=== PATIENT | female | born 1975 | race African-American/Black ===

== ENCOUNTER 2018-11-27 13:17 | Inpatient (IN) | payer OTHER ==
[2018-11-27 16:24] VITALS: BMI 22.3
--- NOTE | 2018-11-27 18:21 | HP ---
CIWA Score - Admission Criteria [facility] Guidelines: Admission for Medically Managed Detox: Requires at least one of the followin. CIWA greater than 12 2. Seizures within the past 24 hours 3. Delirium tremens within the past 24 hours 4. Hallucinations within the past 24 hours 5. Acute intervention needed for co occurring medical disorder 6. Acute intervention needed for co occurring psychiatric disorder 7. Severe withdrawal that cannot be handled at a lower level of care (continued vomiting, continued diarrhea, abnormal vital signs) requiring intravenous medication and/or fluids 8. Admission [facility] - HPI Chief Complaint: here for rehab Allergies/Adverse Reactions: Allergies Allergy/AdvReac Type Severity Reaction Status Date / Time No Known Allergies Allergy Verified 11/27/18 16:17 History of Present Illness: 43 yo with stage 4 lung cancer- smoker, with opioid use disorder. Is in a MAT- methadone program-120mg. Continues to use- 5 bags [facility] heroin/day. Uses occ marijuana. Would like to stop marijuana use and heroin use. Had upper back surgery to repair vetebrae from metastatic cancer. Pt then had radiation therapy. Now goes to chemotherapy-(Immunotherapy) last treatment Oct 27. Next one due this week- pt to reschedule. PCP- [facility]: THC, Mop, oxy, MTD. - Ebola screening Have you traveled outside of the country in the last 21 days: No Have you had contact with anyone from an Ebola affected area: No - Review of Systems Constitutional: No Symptoms Reported EENT: reports: No Symptoms Reported Respiratory: reports: No Symptoms reported Cardiac: reports: No Symptoms Reported GI: reports: No Symptoms Reported : reports: No Symptoms Reported Musculoskeletal: reports: No Symptoms Reported Integumentary: reports: No Symptoms Reported Neuro: reports: No Symptoms reported Endocrine: reports: No Symptoms Reported Hematology: reports: No Symptoms Reported Psychiatric: reports: No Sypmtoms Reported Other Systems: Reviewed and Negative Patient History - Patient Medical History Hx Cancer: Yes (lung cancer- stage 4, getting immunotherapy) - Smoking Cessation Smoking history: Current every day smoker Have you smoked in the past 12 months: Yes Aproximately how many cigarettes per day: 10 Hx Chewing Tobacco Use: Yes Initiated information on smoking cessation: Yes 'Breaking Loose' booklet given: 11/27/18 - Substances abused Heroin Substance route: Inhalation Frequency: Daily Amount used: 50 dollars Age of first use: 36 Date of last use: 11/25/18 Admission Physical Exam [facility] - Vital Signs Vital Signs: Vital Signs - 24 hr 11/27/18 16:16 Temperature 98.8 F Pulse Rate 95 H Respiratory 16 Rate Blood Pressure 129/66 - Physical General Appearance: Yes: Within Normal Limits HEENTM: Yes: Within Normal Limits, EOMI, Hearing grossly Normal Respiratory: Yes: Within Normal Limits, Chest Non-Tender Neck: Yes: Within Normal Limits, No masses,lesions,Nodules Cardiology: Yes: Within Normal Limits, Regular Rhythm, Regular Rate Abdominal: Yes: Within Normal Limits, Normal Bowel Sounds Back: Yes: Within Normal Limits Musculoskeletal: Yes: Within Normal Limits, Muscle weakness Neurological: Yes: Within Normal Limits Integumentary: Yes: Within Normal Limits Lymphatic: Yes: Within Normal Limits - Diagnostic (1) Opioid use disorder Current Visit: Yes Status: Acute (2) Lung cancer, primary, with metastasis from lung to other site Current Visit: Yes Status: Acute Breathalyzer - Breathalyzer Breathalyzer: 0 Urine Drug Screen - Test Device Lot number: [id number] Expiration date: 07/26/20 - Control Is test valid?: Yes - Results Drug screen NEGATIVE: No Urine drug screen results: THC-Marijuana, MOP-Opiates, OXY-Oxycodone, MTD- Methadone Inpatient Rehab Admission - Rehab Decision to Admit Inpatient rehab admission?: Yes - Initial Determination Are CD services needed?: Yes Free of communicable disease: Yes Not in need of hospitalization: Yes - Rehab Admission Criteria Previous failed treatment: Yes Poor recovery environment: Yes Comorbidities: Yes Lacks judgement: Yes Patient is meeting Inpatient Rehab admission criteria:: Yes (pt in methadone program. Uses THC)
[2018-11-27] MEDS ORDERED: guaiFENesin 200 MG/10 ML 10 ML UNIT-DOSE CUPS PO PRN (18:30)
[2018-11-27] MEDS ORDERED: P-EPHED 60MG/TRIPROLIDI 2.5MG TABLET PO PRN (18:30)
[2018-11-27] MEDS ORDERED: MAGNESIUM CITRATE 300 ML BOTTLE PO PRN (18:30)
[2018-11-27] MEDS ORDERED: LOPERAMIDE HCL 2 MG CAPSULE PO PRN (18:30)
[2018-11-27] MEDS ORDERED: MENTHOL/PHENOL 1 EACH UD MM PRN (18:30)
[2018-11-27] MEDS ORDERED: MAG HYDROX/AL HYDROX/SIMETH 30 ML UNIT-DOSE CUP PO PRN (18:30)
[2018-11-27] MEDS ORDERED: MAGNESIUM HYDROX 2400MG/30ML ORAL SUSPENSION 30 ML CUP PO PRN (18:30)
[2018-11-27] MEDS ORDERED: ACETAMINOPHEN 325 MG TABLET (FP) PO PRN (18:30)
[2018-11-27] MEDS: THIAMINE HCL 100 MG TABLET (FP) PO SCH (21:11)
[2018-11-27] MEDS: hydrOXYzine PAMOATE 25 MG CAPSULE (FP) PO PRN (21:11)
[2018-11-27] MEDS: NICOTINE POLACRILEX 2 MG GUM BC PRN (21:12)
[2018-11-27] MEDS ORDERED: traZODone HCL 50 MG TABLET (FP) PO SCH (22:00)
[2018-11-28] MEDS: METHADONE HCL 40 MG DISPERSABLE TABLET PO SCH (07:59)
[2018-11-28] MEDS: PRENATAL VITAMINS W/ FOLIC ACID TABLET (FP) PO SCH (09:36)
[2018-11-28] MEDS: NICOTINE 14 MG/24 HOURS TOPICAL PATCH TD SCH (09:36)
[2018-11-28] MEDS: NICOTINE POLACRILEX 2 MG GUM BC PRN ×3 (09:36→21:03)
[2018-11-28] MEDS: IBUPROFEN 400 MG TABLET (FP) PO PRN (09:37)
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
[2018-11-28 10:51] LABS: HEMOGLOBIN 12.1 GM/dL (10.7-15.3); MCH 29.6 pg (25.7-33.7); MCHC 32.6 g/dl (32.0-36.0); MEAN CELL VOLUME 90.6 fl (80-96); MEAN PLT VOLUME 9.7 fl (7.5-11.1); PLATELET COUNT 186 K/MM3 (134-434); RBC 4.09 M/mm3 (3.60-5.2); RDW 14.8 % (11.6-15.6); WHITE BLOOD COUNT 2.6 K/mm3 (4.0-10.0)
[2018-11-28 10:57] LABS: ALBUMIN 2.8 g/dl (3.4-5.0); BILIRUBIN,TOTAL 0.3 mg/dL (0.2-1); BLOOD UREA NITROGEN 9.7 mg/dL (7-18); CALCIUM 8.8 mg/dL (8.5-10.1); CREATININE 0.8 mg/dL (0.55-1.3); POTASSIUM 4.1 mmol/L (3.5-5.1); TOT PROT 5.9 g/dl (6.4-8.2)
[2018-11-28] MEDS: hydrOXYzine PAMOATE 25 MG CAPSULE (FP) PO PRN (12:26)
[2018-11-28 12:31] LABS: EPI CELLS 22.1 /HPF (0-5/HPF); URINE APPEARANCE CLOUDY; URINE BACTERIA 132.5 /hpf (NEGATIVE); URINE BILIRUBIN NEGATIVE (NEGATIVE); URINE COLOR YELLOW; URINE GLUCOSE (UA) NEGATIVE (NEGATIVE); URINE KETONE TRACE (NEGATIVE); URINE LEUK ESTERASE 1+ (NEGATIVE); URINE NITRITE NEGATIVE (NEGATIVE); URINE PROTEIN 1+ (NEGATIVE); URINE RBC 2 /hpf (0-4); URINE WBC 10 /hpf (0-5)
[2018-11-28 13:35] LABS: HYALINE CASTS 2 /lpf (0-8); URINE CRYSTALS CALCIUM OXALATE /hpf
[2018-11-28] MEDS: MIRTAZAPINE 15 MG TABLET (FP) PO SCH (21:02)
[2018-11-28] MEDS: MELATONIN 5 MG TABLETS PO PRN (21:02)
[2018-11-28] MEDS: THIAMINE HCL 100 MG TABLET (FP) PO SCH (21:02)
[2018-11-29] MEDS: METHADONE HCL 40 MG DISPERSABLE TABLET PO SCH (06:17)
[2018-11-29] MEDS: PRENATAL VITAMINS W/ FOLIC ACID TABLET (FP) PO SCH (09:32)
[2018-11-29] MEDS: NICOTINE 14 MG/24 HOURS TOPICAL PATCH TD SCH (09:32)
[2018-11-29] MEDS: NICOTINE POLACRILEX 2 MG GUM BC PRN ×2 (09:34→21:25)
--- NOTE | 2018-11-29 10:06 | PN ---
[facility] Progress Note (SOAP) Subjective: Patient has stage 4 lung cancer; receives chemotherapy every 4 weeks. Her appointment for chemotherapy, a c-scan, and medical evaluation is due during her stay in rehab. Ms. Harrison states that she is up to date with all her oncology treatment program and it will not effect her care if she stays the 2 weeks in rehab. Objective: CBC, BMP 11/28/18 09:00 11/28/18 09:00 Vital Signs (72 hours) 11/27/18 11/27/18 11/28/18 16:16 20:47 00:30 Temperature 98.8 F 98.2 F Pulse Rate 95 H 96 H Respiratory 16 18 16 Rate Blood Pressure 129/66 120/64 11/28/18 11/28/18 11/29/18 03:30 07:34 00:30 Temperature 97.9 F Pulse Rate 99 H Respiratory 16 18 16 Rate Blood Pressure 130/90 11/29/18 11/29/18 03:30 06:47 Temperature 97.8 F Pulse Rate 87 Respiratory 16 18 Rate Blood Pressure 122/83 11/29/18 10:00 11/29/18 10:01 P/E: General: No apparent distress, A+O HEENTM: normocephalic, Neck: supple skin: clear Lungs: clear Heart: regular Neuro: no neurological deficits, Cn 2-12 intact. Assessment: Stage 4 lung cancer 11/29/18 10:02 Plan: Offered the patient early discharge with an opportunity to return to rehab in order to keep her oncology appointment. Consulted with Ms. Perez about the patient, who agreed that patient could be discharged to attend her oncology appointment and return to be re-admitted. Patient refused the offer and stated that she wanted to complete her 2 week rehab program. Advised patient that if any point during her stay, she wanted to arrange to keep her oncology appointment to please let her counselor know. Asked patient to speak to her counselor about this issue and accompanied patient to counselor's office. Informed Ms. Dennise RN of the same.
[2018-11-29] MEDS: THIAMINE HCL 100 MG TABLET (FP) PO SCH (21:23)
[2018-11-29] MEDS: MIRTAZAPINE 15 MG TABLET (FP) PO SCH (21:23)
[2018-11-29] MEDS: hydrOXYzine PAMOATE 25 MG CAPSULE (FP) PO PRN (21:23)
[2018-11-29] MEDS: MELATONIN 5 MG TABLETS PO PRN (21:24)
[2018-11-30] MEDS: METHADONE HCL 40 MG DISPERSABLE TABLET PO SCH (06:41)
[2018-11-30] MEDS: NICOTINE 14 MG/24 HOURS TOPICAL PATCH TD SCH (09:29)
[2018-11-30] MEDS: NICOTINE POLACRILEX 2 MG GUM BC PRN (09:30)
[2018-11-30] MEDS: PRENATAL VITAMINS W/ FOLIC ACID TABLET (FP) PO SCH (09:30)
[2018-11-30] MEDS: MIRTAZAPINE 15 MG TABLET (FP) PO SCH (21:37)
[2018-11-30] MEDS: THIAMINE HCL 100 MG TABLET (FP) PO SCH (21:38)
[2018-11-30] MEDS: MELATONIN 5 MG TABLETS PO PRN (21:38)
[2018-12-01] MEDS: METHADONE HCL 40 MG DISPERSABLE TABLET PO SCH (07:00)
[2018-12-01] MEDS: PRENATAL VITAMINS W/ FOLIC ACID TABLET (FP) PO SCH (09:45)
[2018-12-01] MEDS: NICOTINE 14 MG/24 HOURS TOPICAL PATCH TD SCH (09:45)
[2018-12-01] MEDS: NICOTINE POLACRILEX 2 MG GUM BC PRN ×2 (09:46→21:45)
[2018-12-01] MEDS: THIAMINE HCL 100 MG TABLET (FP) PO SCH (21:44)
[2018-12-01] MEDS: MIRTAZAPINE 15 MG TABLET (FP) PO SCH (21:44)
[2018-12-01] MEDS: MELATONIN 5 MG TABLETS PO PRN (21:44)
[2018-12-01] MEDS: hydrOXYzine PAMOATE 25 MG CAPSULE (FP) PO PRN (21:45)
[2018-12-02] MEDS: METHADONE HCL 40 MG DISPERSABLE TABLET PO SCH (06:40)
[2018-12-02] MEDS: PRENATAL VITAMINS W/ FOLIC ACID TABLET (FP) PO SCH (09:55)
[2018-12-02] MEDS: NICOTINE 14 MG/24 HOURS TOPICAL PATCH TD SCH (09:55)
[2018-12-02] MEDS: NICOTINE POLACRILEX 2 MG GUM BC PRN ×3 (09:58→21:20)
[2018-12-02] MEDS: hydrOXYzine PAMOATE 25 MG CAPSULE (FP) PO PRN ×2 (13:01→21:19)
[2018-12-02] MEDS ORDERED: COLLOIDAL OATMEAL 1 BAR EACH TP PRN (16:03)
--- NOTE | 2018-12-02 16:11 | PN ---
[facility] Progress Note Note: Laboratory Tests 11/27/18 11/28/18 11/28/18 17:06 08:00 09:00 WBC 2.6 L RBC 4.09 Hgb 12.1 Hct 37.0 MCV 90.6 MCH 29.6 MCHC 32.6 RDW 14.8 Plt Count 186 MPV 9.7 Sodium Potassium Chloride Carbon Dioxide Anion Gap BUN Creatinine Est GFR (CKD-EPI)AfAm Est GFR (CKD-EPI)NonAf Random Glucose Calcium Total Bilirubin AST ALT Alkaline Phosphatase Total Protein Albumin Urine Color Yellow Urine Appearance Cloudy Urine pH 6.0 Ur Specific [place] 1.022 Urine Protein 1+ H Urine Glucose (UA) Negative Urine Ketones Trace H Urine Blood 3+ H Urine Nitrite Negative Urine Bilirubin Negative Urine Urobilinogen 1.0 Ur Leukocyte Esterase 1+ H Urine WBC (Auto) 10 Urine RBC (Auto) 2 Urine Casts (Auto) 2 U Pathogenic Cast Auto None seen U Epithel Cells (Auto) 22.1 Urine Crystals (Auto) Calcium oxalate Urine Bacteria (Auto) 132.5 POC Urine HCG, Qual Negative RPR Titer 11/28/18 11/28/18 09:00 09:00 WBC RBC Hgb Hct MCV MCH MCHC RDW Plt Count MPV Sodium 143 Potassium 4.1 Chloride 109 H Carbon Dioxide 29 Anion Gap 6 L BUN 9.7 Creatinine 0.8 Est GFR (CKD-EPI)AfAm 103.92 Est GFR (CKD-EPI)NonAf 89.66 Random Glucose 78 Calcium 8.8 Total Bilirubin 0.3 AST 9 L ALT 12 L Alkaline Phosphatase 134 H Total Protein 5.9 L Albumin 2.8 L Urine Color Urine Appearance Urine pH Ur Specific [place] Urine Protein Urine Glucose (UA) Urine Ketones Urine Blood Urine Nitrite Urine Bilirubin Urine Urobilinogen Ur Leukocyte Esterase Urine WBC (Auto) Urine RBC (Auto) Urine Casts (Auto) U Pathogenic Cast Auto U Epithel Cells (Auto) Urine Crystals (Auto) Urine Bacteria (Auto) POC Urine HCG, Qual RPR Titer Nonreactive Vital Signs Temperature 97.9 F 12/02/18 07:13 Pulse Rate 97 H 12/02/18 07:13 Respiratory Rate 18 12/02/18 07:13 Blood Pressure 127/87 12/02/18 07:13 O2 Sat by Pulse Oximetry (%) Patient c/o itching and rash to arms. ROS : +itching PE: alert and oriented x 3 skin warm and dry, +macular red rash to arms no open areas A/P: UA + blood Rash aveeno soap hydrocortisone cream repeat ua in am
[2018-12-02] MEDS: CYCLOBENZAPRINE HCL 10 MG TABLET (FP) PO PRN (16:49)
[2018-12-02] MEDS ORDERED: PT OWN MED DRAWER 7, Y5N ONE (17:51)
[2018-12-02] MEDS: THIAMINE HCL 100 MG TABLET (FP) PO SCH (21:19)
[2018-12-02] MEDS: MELATONIN 5 MG TABLETS PO PRN (21:19)
[2018-12-02] MEDS: MIRTAZAPINE 15 MG TABLET (FP) PO SCH (21:19)
[2018-12-02] MEDS: IBUPROFEN 400 MG TABLET (FP) PO PRN (21:20)
[2018-12-02] MEDS: HYDROCORTISONE 0.5% TOPICAL CREAM 30 GM TUBE TP SCH (21:21)
[2018-12-03] MEDS: METHADONE HCL 40 MG DISPERSABLE TABLET PO SCH (06:34)
[2018-12-03] MEDS ORDERED: PT OWN MED DRAWER 7, Y5N ONE (08:52)
[2018-12-03] MEDS: HYDROCORTISONE 0.5% TOPICAL CREAM 30 GM TUBE TP SCH ×2 (09:50→21:19)
[2018-12-03] MEDS: NICOTINE 14 MG/24 HOURS TOPICAL PATCH TD SCH (09:50)
[2018-12-03] MEDS: PRENATAL VITAMINS W/ FOLIC ACID TABLET (FP) PO SCH (09:50)
[2018-12-03] MEDS: hydrOXYzine PAMOATE 25 MG CAPSULE (FP) PO PRN ×3 (09:52→22:37)
[2018-12-03] MEDS: CYCLOBENZAPRINE HCL 10 MG TABLET (FP) PO PRN ×2 (09:52→17:50)
[2018-12-03] MEDS: NICOTINE POLACRILEX 2 MG GUM BC PRN (09:53)
[2018-12-03 12:38] LABS: URINE APPEARANCE CLOUDY; URINE BILIRUBIN NEGATIVE (NEGATIVE); URINE COLOR YELLOW; URINE GLUCOSE (UA) NEGATIVE (NEGATIVE); URINE KETONE NEGATIVE (NEGATIVE); URINE LEUK ESTERASE NEGATIVE (NEGATIVE); URINE NITRITE NEGATIVE (NEGATIVE); URINE PROTEIN NEGATIVE (NEGATIVE); URINE UROBILINOGEN 0.2 mg/dL (0.2-1.0)
[2018-12-03] MEDS: MIRTAZAPINE 15 MG TABLET (FP) PO SCH (21:18)
[2018-12-03] MEDS: THIAMINE HCL 100 MG TABLET (FP) PO SCH (21:18)
[2018-12-03] MEDS: MELATONIN 5 MG TABLETS PO PRN (21:18)
[2018-12-04] MEDS: METHADONE HCL 40 MG DISPERSABLE TABLET PO SCH (06:22)
[2018-12-04] MEDS: NICOTINE 14 MG/24 HOURS TOPICAL PATCH TD SCH (09:40)
[2018-12-04] MEDS: PRENATAL VITAMINS W/ FOLIC ACID TABLET (FP) PO SCH (09:40)
[2018-12-04] MEDS: HYDROCORTISONE 0.5% TOPICAL CREAM 30 GM TUBE TP SCH ×2 (09:41→21:36)
[2018-12-04] MEDS: hydrOXYzine PAMOATE 25 MG CAPSULE (FP) PO PRN ×3 (09:43→21:29)
[2018-12-04] MEDS: CYCLOBENZAPRINE HCL 10 MG TABLET (FP) PO PRN ×2 (09:43→18:42)
[2018-12-04] MEDS: NICOTINE POLACRILEX 2 MG GUM BC PRN ×3 (09:44→21:32)
[2018-12-04] MEDS: MELATONIN 5 MG TABLETS PO PRN (21:29)
[2018-12-04] MEDS: MIRTAZAPINE 15 MG TABLET (FP) PO SCH (21:29)
[2018-12-04] MEDS: THIAMINE HCL 100 MG TABLET (FP) PO SCH (21:30)
[2018-12-05] MEDS: METHADONE HCL 40 MG DISPERSABLE TABLET PO SCH (06:31)
[2018-12-05] MEDS: NICOTINE 14 MG/24 HOURS TOPICAL PATCH TD SCH (09:43)
[2018-12-05] MEDS: PRENATAL VITAMINS W/ FOLIC ACID TABLET (FP) PO SCH (09:43)
[2018-12-05] MEDS: HYDROCORTISONE 0.5% TOPICAL CREAM 30 GM TUBE TP SCH ×2 (09:44→22:09)
[2018-12-05] MEDS: CYCLOBENZAPRINE HCL 10 MG TABLET (FP) PO PRN ×2 (09:45→19:00)
[2018-12-05] MEDS: NICOTINE POLACRILEX 2 MG GUM BC PRN ×3 (09:46→21:25)
[2018-12-05] MEDS: hydrOXYzine PAMOATE 25 MG CAPSULE (FP) PO PRN ×2 (09:47→19:00)
[2018-12-05] MEDS: MELATONIN 5 MG TABLETS PO PRN (21:24)
[2018-12-05] MEDS: THIAMINE HCL 100 MG TABLET (FP) PO SCH (21:24)
[2018-12-05] MEDS: MIRTAZAPINE 15 MG TABLET (FP) PO SCH (21:24)
[2018-12-06] MEDS: METHADONE HCL 40 MG DISPERSABLE TABLET PO SCH (06:21)
[2018-12-06 07:19] VITALS: BP 131/86; PULSE 100; TEMP 97.6
--- NOTE | 2018-12-06 08:46 | DS ---
[facility] Rehab Discharge Summary - [facility] Rehab Discharge Summary Admission Date: 11/27/18 Discharge Date: 12/06/18 - History Present History: Cannabis dependence, MMTP, Opioid dependence Additional Comments: Pt is a 43 y/o female admitted to rehab with [facility] and discharged today. Pt will be following up with her MMTP at [facility] to continue maintenance. Pt reports she has a primary care doctor Dr. Lynn for medical management as well as oncology care at [place], [place]. Reports her next appointment is on 12/11/18. Pertinent Past History: Hx Lung Cancer MDD - Discharge Physical Exam Vital Signs: Vital Signs Temperature 97.6 F 12/06/18 07:18 Pulse Rate 100 H 12/06/18 07:18 Respiratory Rate 18 12/06/18 07:18 Blood Pressure 131/86 12/06/18 07:18 O2 Sat by Pulse Oximetry (%) Alert o x 3 nad oob Cardiac:s1 s2, rrr Lungs:cta,jose angel. Abdomen:soft,+bs,nt,nd Extremities/Skin:no edema,Full ROM,skin intact. Pertinent Admission Physical Exam Findings: Laboratory Tests 11/27/18 11/28/18 11/28/18 17:06 08:00 09:00 WBC 2.6 L RBC 4.09 Hgb 12.1 Hct 37.0 MCV 90.6 MCH 29.6 MCHC 32.6 RDW 14.8 Plt Count 186 MPV 9.7 Sodium Potassium Chloride Carbon Dioxide Anion Gap BUN Creatinine Est GFR (CKD-EPI)AfAm Est GFR (CKD-EPI)NonAf Random Glucose Calcium Total Bilirubin AST ALT Alkaline Phosphatase Total Protein Albumin Urine Color Yellow Urine Appearance Cloudy Urine pH 6.0 Ur Specific [place] 1.022 Urine Protein 1+ H Urine Glucose (UA) Negative Urine Ketones Trace H Urine Blood 3+ H Urine Nitrite Negative Urine Bilirubin Negative Urine Urobilinogen 1.0 Ur Leukocyte Esterase 1+ H Urine WBC (Auto) 10 Urine RBC (Auto) 2 Urine Casts (Auto) 2 U Pathogenic Cast Auto None seen U Epithel Cells (Auto) 22.1 Urine Crystals (Auto) Calcium oxalate Urine Bacteria (Auto) 132.5 POC Urine HCG, Qual Negative RPR Titer 11/28/18 11/28/18 12/03/18 09:00 09:00 10:15 WBC RBC Hgb Hct MCV MCH MCHC RDW Plt Count MPV Sodium 143 Potassium 4.1 Chloride 109 H Carbon Dioxide 29 Anion Gap 6 L BUN 9.7 Creatinine 0.8 Est GFR (CKD-EPI)AfAm 103.92 Est GFR (CKD-EPI)NonAf 89.66 Random Glucose 78 Calcium 8.8 Total Bilirubin 0.3 AST 9 L ALT 12 L Alkaline Phosphatase 134 H Total Protein 5.9 L Albumin 2.8 L Urine Color Yellow Urine Appearance Cloudy Urine pH 8.0 D Ur Specific [place] 1.020 Urine Protein Negative Urine Glucose (UA) Negative Urine Ketones Negative Urine Blood Negative Urine Nitrite Negative Urine Bilirubin Negative Urine Urobilinogen 0.2 Ur Leukocyte Esterase Negative Urine WBC (Auto) Urine RBC (Auto) Urine Casts (Auto) U Pathogenic Cast Auto U Epithel Cells (Auto) Urine Crystals (Auto) Urine Bacteria (Auto) POC Urine HCG, Qual RPR Titer Nonreactive Unremarkable - Treatment Discharge Condition: Discharge condition good Hospital Course: Rehabilitated safely and responded well CD aftercare referral accepted - Medication Discharge Medications: Ambulatory Orders Mirtazapine [Remeron -] 15 mg PO HS #30 tablet 12/06/18 - Medication-Assisted Treatment (MAT) Medication-Assisted Treatment (MAT): No - Discharge Instructions Diet, activity, other medical instructions: Diet:Regular Activity: oob ad alicia Other medical instructions:Follow up with CD aftercare @ [facility] on [address] [place] [address]. follow up with primary care doctor/medical management at [facility] as scheduled on 12/11/18. - Follow-up Referral Minutes to complete discharge: 30 - AMA Did Patient Leave Against Medical Advice: No
--- NOTE | 2018-12-06 09:06 | PN ---
[facility] Progress Note Note: Patient is discharged today. Script for 30 days supply of Remeron 15 mg/hs is electronically transmitted to [facility] at [address] [place], [place] [id number]
== END 2018-12-06 09:22 | disposition home or self-care (01) | DRG 772 ==
LOC: YASAS 13:17 → Y3E 20:05
PROVIDERS: ADMIT Neuromusculoskeletal Medicine & OMM; ATTEND Neuromusculoskeletal Medicine & OMM
PROC: HZ42ZZZ Group Counseling for Substance Abuse Treatment, Cognitive-Behavioral (ICD-10-PCS; principal; 2018-11-27)
DX: F11.20 Opioid dependence, uncomplicated (principal); F12.20 Cannabis dependence, uncomplicated; F32.9 Major depressive disorder, single episode, unspecified; C34.90 Malignant neoplasm of unspecified part of unspecified bronchus or lung; R21 Rash and other nonspecific skin eruption
CPT/HCPCS: 36415; 80053; 81003; 81025; 85027; 86593